=== PATIENT | male | born 1950 | race Caucasian/White ===

== ENCOUNTER 2018-08-21 00:36 | Inpatient (IN) | payer MEDICARE ==
[2018-08-21] VITALS (17 sets, daily range): BP systolic 122–193; BP diastolic 72–99
[~2018-08-21] VITALS: Ht 182.9 cm; Wt 80.3 kg
[~2018-08-21 00:36] MED LIST: GLUC100026 PO; MV-M1TAB38 PO; NEBI10TA4 PO
[2018-08-21] MEDS ORDERED: ACETAMINOPHEN 500 MG TAB PO ONE (06:00)
[2018-08-21] MEDS ORDERED: ceFAZolin(*) 2GM/D5W 50ML 50 ML IVPB ONE (06:00)
[2018-08-21] MEDS ORDERED: NORMOSOL R SOLN(*) 1000 ML BAG 1,000 ML IV PRN (06:00)
[2018-08-21] MEDS ORDERED: MIDAZOLAM 2 MG/2 ML VIAL IVP PRN (06:00)
[2018-08-21] MEDS ORDERED: FAMOTIDINE 20 MG TAB PO ONE (06:00)
[2018-08-21] MEDS ORDERED: LIDOCAINE/SOD BICARB 8.4% SYR ID ONE (06:00)
[2018-08-21] MEDS ORDERED: PREGABALIN 150 MG CAPSULE PO ONE (06:00)
[2018-08-21] MEDS ORDERED: NS 0.9% 20 ML SDV 40 ML ONE (06:40)
[2018-08-21] MEDS ORDERED: REMIFENTANIL HCL 1 MG VIAL ONE (06:42)
[2018-08-21] MEDS ORDERED: fentaNYL CITR 250 MCG/5 ML AMP ONE (06:48)
[2018-08-21] MEDS ORDERED: ONDANSETRON 4 MG/2 ML VIAL ONE (06:49)
[2018-08-21] MEDS ORDERED: PROPOFOL EMUL(*) 10MG/ML 20 ML 60 ML ONE ×2 (07:15→07:51)
[2018-08-21] MEDS ORDERED: NS 0.9% 20 ML SDV 20 ML ONE (07:15)
[2018-08-21] MEDS ORDERED: HYDROmorphone HCL 2 MG/ML SDV ONE (07:28)
[2018-08-21] MEDS ORDERED: KETAMINE HCL 200 MG/20 ML MDV ONE (07:43)
[2018-08-21] MEDS ORDERED: fentaNYL CITR 100 MCG/2 ML AMP ONE (09:17)
[2018-08-21] MEDS ORDERED: LR(*) 1000 ML BAG 1,000 ML IV PRN (09:40)
[2018-08-21] MEDS ORDERED: BISACODYL 10 MG SUPP PR PRN (09:40)
[2018-08-21] MEDS ORDERED: diphenhydrAMINE 25 MG CAP PO PRN (09:40)
[2018-08-21] MEDS ORDERED: MAGNESIUM HYDROXIDE* 30ML UDCP PO PRN (09:40)
[2018-08-21] MEDS ORDERED: FLUSH 10 ML SYR IVP PRN (09:40)
[2018-08-21] MEDS ORDERED: ONDANSETRON 4 MG/2 ML VIAL IVP PRN (09:40)
[2018-08-21] MEDS ORDERED: HYDROmorphone HCL 2 MG/ML SDV IVP PRN (09:40)
[2018-08-21] MEDS ORDERED: ACETAMINOPHEN 500 MG TAB PO PRN (09:40)
[2018-08-21] MEDS ORDERED: BENZOCAINE/MENTHOL 1 EACH LOZG PO PRN (09:40)
[2018-08-21] MEDS ORDERED: APAP/HYDROCODONE 325/5 TAB PO PRN (09:40)
[2018-08-21] MEDS ORDERED: ACETAMINOPHEN(*)1000 MG/100 ML 100 ML IVPB PRN (09:40)
--- NOTE | 2018-08-21 10:11 | RADIOLOGY IMAGING REPORT ---
FACILITY: [facility] [place] PATIENT NAME: Jared Lai : 1950 MR: [id number] V: [id number] EXAM DATE: [id number] ORDERING PHYSICIAN: KATLYN ALBA TECHNOLOGIST: Location: [facility] Patient: Jared Lai : 1950 Visit/Account:[id number] Date of Sevice: 08/21/2018 Exam type: CERVICAL SPINE 1 VIEW History: C6-C7 DISC HERNIATION/FUSION Comparison: July 08, 2018. Findings: Three portable intraoperative crosstable lateral supine views of the cervical spine were submitted. On the initial image there is a metallic probe projecting over the anterior aspect of C6-7. On the s ubsequent two images and intervertebral disc spacer is noted at C6-7. The vertebral bodies appear in relatively good anatomic alignment on this lateral view. Incidentally noted is an endotracheal tube IMPRESSION: 1. As above Report Dictated By: Mitzy Cervantes MD at 08/21/2018 10:05 AM Report E-Signed By: Mitzy Cervantes MD at 08/21/2018 10:07 AM WSN:[id number]
--- NOTE | 2018-08-21 10:58 | OPERATIVE REPORT 1 ---
EVENT DATE: August 21, 2018 SURGEON: Chad Tavares MD ANESTHESIOLOGIST: Dimitrios Salazar MD ANESTHESIA: General endotracheal. HIGHWAY CONSTRUCTION INSPECTOR: GRACIELA Guajardo PREOPERATIVE DIAGNOSIS Left C7 radiculopathy with C6-C7 disc herniation and degenerative disc disease. POSTOPERATIVE DIAGNOSIS Left C7 radiculopathy with C6-C7 disc herniation and degenerative disc disease. PROCEDURE PERFORMED C6-C7 anterior cervical discectomy and fusion. IV FLUIDS 1200 cc. ESTIMATED BLOOD LOSS 30 cc. IMPLANTS USED 7 mm Lordotic size medium titanium interbody implant from [employer] and 3.5 mm x 14 mm fixation screws also from [employer], plus 1 cc of ViBone bone graft substitute. SPECIMENS None. DRAINS 10-Bolivian round Aaron Wynn drain through the neck. COMPLICATIONS None. DISPOSITION Post anesthesia care unit. INDICATIONS FOR SURGERY Mr. Lai is a 68-year-old gentleman who presented with a complaint of severe radiating left upper extremity pain, numbness and tingling. The symptoms ran from the neck into the periscapular region and then down the posterior aspect of the triceps, into the dorsal forearm and into the the index and middle finger of the left hand. He had some improvement with physical therapy, but the pain was still severe enough for him to seek treatment with me. He had some fine motor skill issues as well with the left hand where he dropped some objects, but had no issues with gait abnormality, bowel or bladder dysfunction, etc. His physical examination was significant for a positive Spurling's maneuver and positive self Spurling's maneuver to the left reproducing symptoms in the C7 distribution down the left arm. His strength was diminished in the triceps on the left at 4+/5 compared 5/5 on the right and light touch sensation was subjectively diminished in the index and long finger of the left hand. Deep tendon reflexes were 1+ at the bilateral biceps, 1+ at the right triceps, and absent at the left triceps. His imaging studies showed multilevel degenerative changes and the MRI showed a significant left sided disc osteophyte complex and disc bulge compromising the foraminal nerve root exit zone at C6-C7 on the left. The other levels had mild degenerative changes with only mild foraminal narrowing. Secondary to ongoing symptoms and failure of nonsurgical treatment, Mr. Lai was offered and elected to undergo C6-C7 anterior cervical discectomy and fusion. Prior to surgery I explained in detail to the patient possible risks of surgery. These risks include bleeding, infection, damage to surrounding structures, swallowing difficulties and possible need for tube feeding. Other risks include, hoarseness, damage to the superior inferior laryngeal nerve, need for further surgery, persistent and/or worsening pain, , blindness, sexual dysfunction, autonomic nervous system dysfunction, and other unforeseen medical and surgical complications. An understanding of the spinal surgery in general is more predictive at improving extremity discomfort than axial spine pain was stressed. DESCRIPTION OF PROCEDURE On the day of surgery, the patient was met in the preoperative hold area and all questions were answered. His operative site was identified and marked by myself. He was brought in good condition to the operating room and after succumbing to anesthesia, was positioned in the supine position on a standard operating room bed. His arms were secured loosely at the sides to afford access to the cervical spine and tape was used to retract the shoulders inferiorly. The patient was prepped and draped in the standard sterile orthopedic fashion and a final timeout was undertaken to confirm correct patient, correct levels, and correct surgery. A transverse incision was then made over the left side of the anterior cervical spine and sharp dissection was carried down to the platysmal which was divided. The medial border of the sternocleidomastoid muscle was identified and dissection was carried out medial to that. A finger was used to palpate the carotid pulse and then blunt dissection was carried out medial to the carotid sheath, coming down onto the anterior aspect of the spine. Soft tissues were elevated off the anterior cervical spine in a subperiosteal manner and a lateral radiograph was obtained to confirm correct spinal level. Self-retaining retractors were placed and distracted taking care to keep the retractors beneath the longus colli muscles. The microscope was then brought into the field. A pituitary rongeur and knife was used to remove the anterior annulus from the C6, C7 disc. Progressively smaller curettes and pituitary rongeurs were then used to perform discectomy from ventral to dorsal until we encountered the dorsal fibers of the annulus fibrosis. These were dissected through using forward angled curettes and we then encountered the posterior longitudinal ligament. High speed fallon was used to take down posterior osteophytes and perform uncovertebral resection as appropriate. A small forward angled curette was used to tease our way through the posterior longitudinal ligament and a #1 and #2 Kerrison punch were then used to take down the PLL. Wide foraminotomies were performed bilaterally paying special attention to the symptomatic side and nerve hook was passed behind the vertebral bodies to insure no persistent pressure on the cord, and foramina bilaterally to insure no persistent pressure on exiting nerve roots. The wound was then irrigated with copious sterile saline solution and the endplates of the C6 and C7 vertebral bodies were shaped and sculpted to accommodate an interbody device. A 7 mm size medium trial was tapped into place and found to have excellent press fit. There was no change in neurophysiologic monitoring. A 7 mm, 6 degree Lordotic size medium interbody device from [employer] was selected and packed with ViBone. This was then placed within the interbody space at C6, C7 and counter sunk about 0.5 mm. The awl was then used to penetrate the endplates through the integrated whole in the device and 3.5 mm x 14 mm screws were used to fix the device in place, one screw into the C6 vertebral body and one into the C7. A lateral radiograph was obtained that confirmed excellent placement of the hardware and we then obtained meticulous hemostasis and the wound was closed in layers using inverted interrupted sutures for the subcutaneous tissue and a running subcuticular skin stitch. A 10-Bolivian round Aaron Wynn drain was left deep to the platysma. POSTOPERATIVE CARE PLAN Mr. Lai will remain in the hospital overnight and he will have his drain removed in the morning. He will ultimately be discharged home once he meets criteria and will follow up with me in 2 weeks time for wound check and examination. CHRISTIAN
--- NOTE | 2018-08-21 11:03 | Hospitalist Consultation ---
History of Present Illness Requesting Physician Dr. Tavares Reason for Consult Hypertension Chief Complaint s/p cervical fusion History of Present Illness He was admitted s/p cervical fusion. It is reported the surgery went well and without complication. History Problems: (1) Hypertension Status: Chronic Home Meds Reported Medications Glucosamine Sulfate 2KCL (GLUCOSAMINE) 1,000 Mg Tablet, 1000 MG PO DAILY 08/14/18 Mv-Mn/FA/Vit K/Lycop/Lut/Zeaxa (Ocuvite Eye + Multi Tablet) 1 Each Tablet, 1 TAB PO DAILY 08/14/18 Nebivolol Hcl (BYSTOLIC) 10 Mg Tab, 10 MG PO DAILY, TAB 08/14/18 Allergies: Coded Allergies: Sulfa (Sulfonamide Antibiotics) (Verified Allergy, Mild, HIVES, FACIAL SWELLING, 08/14/18) Hx Smoking: Yes (QUIT 1978) Smoking Status: Former Smoker Exposure to Second Hand Smoke?: No (NOT CURRENTLY) Caffeine Intake: Coffee Caffeine/Cups Per Day: 2 Hx Alcohol Use: Yes Alcohol Used: Beer Hx Substance Use Disorder: Yes Social Drug Use: Former When Quit Social Drugs?: 1985 History of IV Drug Use: No Review of Systems All Systems Reviewed/Normal: Yes, Except as Noted Exam Vital Signs Vital Signs Date Time Temp Pulse Resp B/P (MAP) Pulse Ox O2 Delivery O2 Flow Rate FiO2 08/21/18 10:31 97.5 52 16 155/89 (111) 97 Nasal Cannula 2.0 General Appearance: Alert, Awake, No Acute Distress, Afebrile Neuro: No Gross deficits Cardiovascular: Regular Rate and Rhythm Respiratory: No Respiratory Distress, Clear to Auscultation GI: Abd Soft and Non-Tender Psych: Alert & Oriented X3, Appropriate Mood & Affect Assessment and Plan Problems: (1) S/P cervical spinal fusion Status: Acute Assessment & Plan: Followed by Dr. Tavares. (2) Hypertension Status: Chronic Assessment & Plan: He is on chronic treatment with Bystolic. This has been restarted with hold parameters. Venous Thromboembolism Antithrombotics Is Pt On Any Antithrombotics?: No Prophylaxis Tx Contraindicated Pharmacological Contraindicati: Surgical Contraindication [employer] Aug 21, 2018 11:03
[2018-08-21] MEDS: oxyCODONE HCL 5 MG CAP PO PRN (12:41)
[2018-08-21] MEDS ORDERED: NS(*) 0.9% 250 ML BAG 250 ML ONE (15:14)
[2018-08-21] MEDS: ceFAZolin(*) 2GM/D5W 50ML 50 ML IVPB SCH ×2 (15:19→22:51)
[2018-08-21] MEDS: CALCIUM POLYCARBOPH 625 MG TAB PO SCH (17:00)
[2018-08-21] MEDS: DOCUSATE SODIUM 100 MG CAP PO SCH (20:37)
[2018-08-21] MEDS: DIAZEPAM 5 MG TAB PO PRN (21:40)
[2018-08-22] MEDS: oxyCODONE HCL 5 MG CAP PO PRN (03:32)
[2018-08-22 04:04] VITALS: BP 155/89
--- NOTE | 2018-08-22 06:06 | Hospitalist Progress Note ---
Subjective Progress Notes Subjective He only c/o some surgical site pain. No CP/SOB/N/V. Physical Exam Vital Signs Date Time Temp Pulse Resp B/P (MAP) Pulse Ox O2 Delivery O2 Flow Rate FiO2 08/22/18 04:04 98.2 63 20 155/89 (111) 93 Nasal Cannula 1.0 Intake and Output 08/22/18 07:00 Intake Total 2936 ml Output Total 770 ml Balance 2166 ml Intake Oral 1118 ml IV Total 1818 ml Output Emesis 700 ml Drainage Total 60 ml Other 10 ml # Voids 4 General Appearance: Alert, Awake Cardiovascular: Regular Rate and Rhythm Respiratory: Clear to Auscultation Assessment and Plan Problems: (1) Hypertension Status: Chronic Assessment & Plan: Stable on chronic treatment with Bystolic - no changes. (2) S/P cervical spinal fusion Status: Acute Assessment & Plan: As per Dr. Tavares. Exam Sepsis Risk: No Definite Risk CHRIS APPLE MD Aug 22, 2018 06:06
[2018-08-22] MEDS: ceFAZolin(*) 2GM/D5W 50ML 50 ML IVPB SCH (06:20)
[2018-08-22] MEDS ORDERED: DOCU240C84 PO (07:00)
[2018-08-22] MEDS ORDERED: LOR5/325 PO (07:05)
--- NOTE | 2018-08-22 07:53 | RADIOLOGY IMAGING REPORT ---
FACILITY: [facility] PATIENT NAME: Jared Lai : 1950 MR: [id number] V: [id number] EXAM DATE: ORDERING PHYSICIAN: KATLYN ALBA TECHNOLOGIST: Location: [facility] Patient: Jared Lai : 1950 Visit/Account:[id number] Date of Sevice: 08/22/2018 CERVICAL SPINE 2 OR 3 VIEW Indication: Pain., POST CERVICAL SPINE SURGERY Comparison: 08/17/2014 Findings: There are postsurgical changes from C6-7 disc arthroplasty, new intervertebral disc is in place and v ertebral bodies are well aligned. Prevertebral soft tissues show only mild soft tissue swelling. There is stable moderate multilevel degenerative disc space disease. IMPRESSION: 1. Unremarkable appearance of C6-7 cervical disc arthroplasty Report Dictated By: Tito Mary at 08/22/2018 7:43 AM Report E-Signed By: Tito Mary at 08/22/2018 7:49 AM WSN:[id number]
[2018-08-22 07:58] VITALS: BP 150/86
[2018-08-22] MEDS: CALCIUM POLYCARBOPH 625 MG TAB PO SCH (08:00)
[2018-08-22] MEDS: DIAZEPAM 5 MG TAB PO PRN (08:50)
[2018-08-22] MEDS: DOCUSATE SODIUM 100 MG CAP PO SCH (08:51)
[2018-08-22] MEDS ORDERED: NEBIVOLOL HCL 5 MG TAB PO SCH (09:00)
== END 2018-08-22 09:09 | disposition home or self-care (01) | DRG 473 ==
LOC: OR 00:36 → MED 10:30
PROVIDERS: ADMIT Orthopaedic Surgery; ATTEND Orthopaedic Surgery
PROC: 0RT30ZZ Resection of Cervical Vertebral Disc, Open Approach (ICD-10-PCS; 2018-08-21)
PROC: 0RG10A0 Fusion of Cervical Vertebral Joint with Interbody Fusion Device, Anterior Approach, Anterior Column, Open Approach (ICD-10-PCS; principal; 2018-08-21 07:08)
DX: M50.123 Cervical disc disorder at C6-C7 level with radiculopathy (principal); M48.02 Spinal stenosis, cervical region; M25.78 Osteophyte, vertebrae; I10 Essential (primary) hypertension; Z88.2 Allergy status to sulfonamides; Z87.891 Personal history of nicotine dependence
CPT/HCPCS: 36415; 72020; 72040; 86850; 86900; 86901; 97161; C1713; J0690; J1170; J2250; J2405; J2704; J3010; J3490; J7050; J7120